=== PATIENT | female | born 1985 | race Caucasian/White ===

== ENCOUNTER 2016-06-04 17:34 | Emergency (ER) | payer OTHER ==
[~2016-06-04] VITALS: Ht 162.6 cm; Wt 68.9 kg
[~2016-06-04 17:34] MED LIST: AMOXICILLI400 MG/5 M PO; BLM PO; MOTRIN CHI100 MG/5 M PO; PRELONE15 MG/5 ML PO
--- NOTE | 2016-06-04 19:39 | ED GI/GU/ABDOMINAL COMPLAINT ---
History of Present Illness General Chief Complaint: Nausea, Vomiting, Diarrhea Stated Complaint: VOMITING; 19WKS PREG Source: patient, old records Exam Limitations: no limitations Vital Signs & Intake/Output Vital Signs & Intake/Output Vital Signs Date Time Temp Pulse Resp B/P Pulse O2 O2 Flow FiO2 Ox Delivery Rate 06/04 2146 98.0 95 16 107/60 98 Room Air 06/04 2034 98.0 89 16 108/58 98 Room Air 06/04 1954 Room Air 06/04 1740 96.8 105 16 109/73 97 Room Air Allergies Coded Allergies: NO KNOWN ALLERGIES (07/22/11) Reconcile Medications Metoclopramide HCl (Reglan) 10 MG TABLET 1 TAB PO 4 TIMES/DAY PRN nausea 30 minutes before meals and bedtime Ondansetron (Ondansetron Odt) 8 MG TAB.RAPDIS 1 TAB PO DAILY N/V (Reported) Vit No.129/Iron/FA ( One Daily Tablet) 27 MG IRON-800 MCG TABLET 1 TAB PO DAILY SUPPLEMENT (Reported) Triage Note: PT STATES SHE IS AND SHE HAS BEEN VOMITING. PT STATES HER OB TOLD HER TO COME IN FOR IV FLUIDS. Triage Nurses Notes Reviewed? yes LMP (ages 10-50): date (19 weeks ago) ? y Is pt currently ? No Onset: 4 days Duration: day(s):, continues in ED, intermittent Timing: recent history Quality/Severity: moderate, vomiting Activities at Onset: none Prior Abdominal Problems: similar symptoms Past Sexual History: Unobtainable at this time Modifying Factors: Worsens With: eating. Associated Symptoms: loss of appetite, nausea/vomiting HPI: 3 days prior to admission patient complains of nausea vomiting decreased appetite. She was seen yesterday prescribed Zofran and a bag of fluid. She is able to tolerate small sips of liquids feels dizzy. She denies fever chills diarrhea chest pain cough shortness of breath abdominal pain dysuria rash bleeding headache. Past History Travel History Traveled to [place] past 21 day No Medical History Any Pertinent Medical History? none Surgical History Surgical History: non-contributory Psychosocial History What is your primary language Belarusian Tobacco Use: Never used ETOH Use: denies use Illicit Drug Use: denies illicit drug use Family History Hx Contributory? No Review of Systems Review of Systems Constitutional: Reports: see HPI, malaise. EENTM: Reports: no symptoms. Respiratory: Reports: no symptoms. Cardiovascular: Reports: no symptoms. GI: Reports: see HPI, nausea, vomiting. Genitourinary: Reports: no symptoms. Musculoskeletal: Reports: no symptoms. Skin: Reports: no symptoms. Neurological/Psychological: Reports: no symptoms. Hematologic/Endocrine: Reports: no symptoms. Immunologic/Allergic: Reports: no symptoms. All Other Systems: Reviewed and Negative Physical Exam Physical Exam General Appearance: well developed/nourished, no apparent distress, awake, anxious, mild distress Head: atraumatic, normal appearance Eyes: Bilateral: normal appearance, PERRL, EOMI, normal inspection. Ears, Nose, Throat, Mouth: hearing grossly normal, dry mucous membranes Neck: normal inspection, supple, full range of motion, normal alignment Respiratory: normal breath sounds, chest non-tender, no respiratory distress, quiet respiration, lungs clear Cardiovascular: regular rate/rhythm, normal peripheral pulses, norml femoral pulses equa Peripheral Pulses: 4+ carotid (R), 4+ carotid (L) Gastrointestinal: normal bowel sounds, soft, non-tender, no organomegaly Back: normal inspection, normal range of motion Extremities: normal range of motion, no ligament instability Neurologic/Psych: no motor/sensory deficits, awake, alert, oriented x 3, normal gait, normal mood/affect, transport conductor II-XII nml as tested Skin: intact, normal color Core Measures ACS in differential dx? No Severe Sepsis Present: No Septic Shock Present: No Progress Differential Diagnosis: gastritis Plan of Care: Orders Procedure Date/time Status LIPASE 06/04 1931 Complete COMPREHENSIVE METABOLIC PANEL 06/04 1931 Complete CBC WITHOUT DIFFERENTIAL 06/04 1931 Complete Laboratory Tests 06/04/161944: Anion Gap 10, Estimated GFR > 60, BUN/Creatinine Ratio 6.0 L, Glucose 80, Calcium 9.0, Total Bilirubin 0.4, AST 33, ALT 45, Alkaline Phosphatase 62, Total Protein 6.9, Albumin 3.8, Globulin 3.1, Albumin/Globulin Ratio 1.2, Lipase 59, CBC w Diff NO MAN DIFF REQ, RBC 3.83 L, MCV 89.6, MCH 30.6, RDW 13.3, MPV 8.6, Gran % 81.1 H, Lymphocytes % 12.0 L, Monocytes % 6.4, Eosinophils % 0.4, Basophils % 0.1, Absolute Granulocytes 5.0, Absolute Lymphocytes 0.7 L, Absolute Monocytes 0.4, Absolute Eosinophils 0, Absolute Basophils 0, PUBS MCHC 34.1 Initial ED EKG: none Departure Departure Time of Disposition: 2137 Disposition: HOME OR SELF CARE Condition: Stable Clinical Impression Primary Impression: Nausea and vomiting in prior to 22 weeks gestation Secondary Impressions: Dehydration syndrome Referrals: PATIENT HAS NO PRIMARY CARE DR (PCP/Family) Additional Instructions: Clear liquids in small amounts for 12-24 hours until better Departure Forms: Customer Survey General Discharge Information Prescriptions: Current Visit Scripts Metoclopramide HCl (Reglan) 1 TAB PO 4 TIMES/DAY PRN nausea #30 TAB 30 minutes before meals and bedtime
[2016-06-04 20:20] LABS: ABSOLUTE BASOPHIL COUNT 0 /CUMM (0.0-0.2); ABSOLUTE EOSINOPHIL COUNT 0 /CUMM (0.0-0.7); ABSOLUTE LYMPH COUNT 0.7 /CUMM (1.2-3.4); ABSOLUTE MONOCYTE COUNT 0.4 /CUMM (0.10-0.60); BASOPHIL % 0.1 % (0.0-2.0); EOSINOPHIL % 0.4 % (0-5); GRANULOCYTE % 81.1 % (42.2-75.2); HEMATOCRIT 34.3 % (37-47); MEAN CORPUSCULAR HGB 30.6 PG (27.0-31.0); MEAN CORPUSCULAR HGB CONC 34.1 G/DL (33.0-37.0); MEAN CORPUSCULAR VOLUME 89.6 FL (81.0-99.0); MEAN PLATELET VOLUME 8.6 FL (7.4-10.4); PLATELET COUNT 198 /CUMM (130-400); RBC DISTRIBUTION WIDTH 13.3 % (11.5-14.5); RED BLOOD CELL CT 3.83 /CUMM (4.20-5.40); WHITE BLOOD CELL COUNT 6.1 /CUMM (4.8-10.8)
[2016-06-04] MEDS ORDERED: REGLAN10 M1 PO (21:39)
[2016-06-04] MEDS ORDERED: ONDANSETRON ODT8 M1 PO (21:40)
[2016-06-04] MEDS ORDERED: PRENATAL ONE D1 EACH PO (21:42)
[2016-06-04 21:47] VITALS: BP 107/60
== END 2016-06-04 21:48 ==
LOC: ERH 17:34
PROVIDERS: Emergency Medicine
DX: O21.9 Vomiting of pregnancy, unspecified (principal); E86.0 Dehydration
CPT/HCPCS: 96361; 96374; J2765

== ENCOUNTER 2016-10-20 17:44 | Inpatient (IN) | payer OTHER ==
[~2016-10-20] VITALS: Ht 162.6 cm; Wt 73.9 kg
[~2016-10-20 17:44] MED LIST changes: +ONDANSETRON ODT8 M1 PO; +PRENATAL ONE D1 EACH PO; +REGLAN10 M1 PO
[2016-10-20 18:44] LABS: ABSOLUTE BASOPHIL COUNT 0 /CUMM (0.0-0.2); ABSOLUTE EOSINOPHIL COUNT 0 /CUMM (0.0-0.7); ABSOLUTE GRANULOCYTE CT 10.4 /CUMM (1.4-6.5); ABSOLUTE MONOCYTE COUNT 0.7 /CUMM (0.10-0.60); BASOPHIL % 0.1 % (0.0-2.0); EOSINOPHIL % 0.3 % (0-5); GRANULOCYTE % 79.2 % (42.2-75.2); MEAN CORPUSCULAR HGB 29.7 PG (27.0-31.0); MEAN CORPUSCULAR HGB CONC 33.5 G/DL (33.0-37.0); MEAN CORPUSCULAR VOLUME 88.8 FL (81.0-99.0); MEAN PLATELET VOLUME 9.4 FL (7.4-10.4); PLATELET COUNT 240 /CUMM (130-400); RBC DISTRIBUTION WIDTH 13.8 % (11.5-14.5); WHITE BLOOD CELL COUNT 13.1 /CUMM (4.8-10.8)
[2016-10-20 20:05] VITALS: BP 128/61
[2016-10-21 09:14] LABS: ABSOLUTE BASOPHIL COUNT 0 /CUMM (0.0-0.2); ABSOLUTE EOSINOPHIL COUNT 0 /CUMM (0.0-0.7); ABSOLUTE GRANULOCYTE CT 8.4 /CUMM (1.4-6.5); ABSOLUTE LYMPH COUNT 1.5 /CUMM (1.2-3.4); ABSOLUTE MONOCYTE COUNT 0.7 /CUMM (0.10-0.60); BASOPHIL % 0 % (0.0-2.0); EOSINOPHIL % 0.3 % (0-5); GRANULOCYTE % 78.7 % (42.2-75.2); HEMATOCRIT 35.3 % (37-47); MEAN CORPUSCULAR HGB CONC 33.9 G/DL (33.0-37.0); MEAN CORPUSCULAR VOLUME 88.5 FL (81.0-99.0); PLATELET COUNT 216 /CUMM (130-400); RBC DISTRIBUTION WIDTH 13.7 % (11.5-14.5); RED BLOOD CELL CT 3.99 /CUMM (4.20-5.40); WHITE BLOOD CELL COUNT 10.7 /CUMM (4.8-10.8)
[2016-10-22] MEDS ORDERED: PERCOCET 5-3251 EACH PO (07:27)
[2016-10-22] MEDS ORDERED: IBUPROFEN800 M1 PO (07:27)
[2016-10-22] MEDS ORDERED: DOCUSATE SODIU100 M3 PO (07:27)
--- NOTE | 2016-10-22 10:18 | PN- Post Delivery/GYN ---
Subjective Subjective: NO C/O; DESIRES LTS AT 7 WEEKS Review of Systems: NEG Objective Last 24 Hrs of Vital Signs/I&O VSS AFEBRILE Physical Exam: FF EXT NT Assessment/Plan Assessment/Plan S/P PPD2 STABLE DISCHARGE HOME Problem List: 1.
--- NOTE | 2016-10-22 10:19 | Labor & Delivery Summary ---
Delivery Summary Vaginal Delivery: Vaginal: vertex Episiotomy/Lacerations: Episiotomy/Lacerations: none Placenta: Placenta: spontanteous, normal, 3 vessel Anesthesia: none Baby's Weight: 7/6 Apgars - 1 Min: 9 Apgars - 5 Min: 9
== END 2016-10-22 11:30 | DRG 560 ==
LOC: CBCO 17:44 → GNO 18:09
PROVIDERS: ADMIT Obstetrics & Gynecology
PROC: 10E0XZZ Delivery of Products of Conception, External Approach (ICD-10-PCS; principal; 2016-10-20)
DX: O62.3 Precipitate labor (principal); Z3A.38 38 weeks gestation of pregnancy; Z37.0 Single live birth
CPT/HCPCS: GNOS; 81001; J1885; J7120

== ENCOUNTER 2017-09-12 19:37 | Emergency (ER) | payer OTHER ==
[~2017-09-12] VITALS: Ht 162.6 cm; Wt 70.3 kg
[~2017-09-12 19:37] MED LIST changes: +BACLOFEN10 M1 PO; +DOCUSATE SODIU100 M3 PO; +IBUPROFEN800 M1 PO; +PERCOCET 5-3251 EACH PO; +PROAIR HFA8.5 GM INH
--- NOTE | 2017-09-12 19:49 | ED CARDIAC/CP/PALPITATIONS ---
History of Present Illness General Chief Complaint: Chest Pain Stated Complaint: SENT IN BY WALK IN FOR CHEST PAIN Source: patient Exam Limitations: no limitations Vital Signs & Intake/Output Vital Signs & Intake/Output Vital Signs Date Time Temp Pulse Resp B/P B/P Pulse O2 O2 Flow FiO2 Mean Ox Delivery Rate 09/12 2141 98 Room Air 09/12 2136 97.2 67 18 142/87 98 Room Air 09/13 2035 97.0 74 18 119/70 99 Room Air Allergies Coded Allergies: NO KNOWN ALLERGIES (NONE 10/21/16) Reconcile Medications Albuterol Sulfate (Proair Hfa) 90 MCG HFA.AER.AD 2 PUF INH Q4-6 PRN PRN shortness of breath Baclofen 10 MG TABLET 1 TAB PO TIDPRN PRN muscle spasm/strain Triage Nurses Notes Reviewed? yes Onset: Gradual Duration: week(s): Timing: recent history Location: central Radiation: no radiation Activities at Onset: none Prior Chest Pain/Card Workup: no prior chest pain Modifying Factors: Worsens With: movement. HPI: 32 yo woman h/o hyperlipidemia presents with central and left sided chest pain, "like a pressure," She was seen at urgent care and referred to ED. She notes no radiation, no dyspnea, diaphoresis, lightheadedness. She is otherwise well. Past History Medical History Any Pertinent Medical History? see below for history Neurological: NONE EENT: NONE Cardiovascular: HIGH CHOL Respiratory: NONE Gastrointestinal: NONE Hepatic: NONE Renal: NONE Musculoskeletal: NONE Psychiatric: NONE Endocrine: NONE Surgical History Surgical History: non-contributory Psychosocial History What is your primary language Kinyarwanda Family History Hx Contributory? No Review of Systems Review of Systems Constitutional: Reports: no symptoms. EENTM: Reports: no symptoms. Respiratory: Reports: no symptoms. Cardiovascular: Reports: no symptoms. GI: Reports: no symptoms. Genitourinary: Reports: no symptoms. Musculoskeletal: Reports: no symptoms. Skin: Reports: no symptoms. Neurological/Psychological: Reports: no symptoms. Hematologic/Endocrine: Reports: no symptoms. Immunologic/Allergic: Reports: no symptoms. All Other Systems: Reviewed and Negative Physical Exam Physical Exam General Appearance: well developed/nourished, mild distress Head: atraumatic, normal appearance Eyes: Bilateral: normal appearance. Ears, Nose, Throat: normal pharynx, normal ENT inspection Neck: normal inspection, supple, full range of motion Respiratory: normal breath sounds Cardiovascular: regular rate/rhythm Gastrointestinal: normal bowel sounds, soft, non-tender Back: normal inspection Extremities: normal inspection, normal capillary refill, normal range of motion, no edema Neurologic/Psych: no motor/sensory deficits, awake, alert, oriented x 3 Skin: intact, normal color, warm/dry Core Measures ACS in differential dx? No CVA/TIA Diagnosis No Sepsis Present: No Sepsis Focused Exam Completed? No Progress Differential Diagnosis: AMI, costochondritis, hyperkalemia, myocarditis Plan of Care: Orders Procedure Date/time Status Add-on Test (ER Only) 09/12 2130 Active Add-on Test (ER Only) 09/12 2124 Active PARTIAL THROMBOPLASTIN TIME 09/12 1956 Complete PROTHROMBIN TIME 09/12 1956 Complete TROPONIN LEVEL 09/13 1939 Complete LIPASE 09/13 1939 Complete HEPATIC FUNCTION PANEL 09/13 1939 Complete HUMAN BETA HCG SCREEN 09/13 1939 Complete D-DIMER 09/13 1939 Complete CBC WITHOUT DIFFERENTIAL 09/13 1939 Complete BASIC METABOLIC PANEL 09/13 1939 Complete AMYLASE 09/13 1939 Complete EKG 09/12 1938 Active Laboratory Tests 09/12/172124: APTT Cancelled 09/12/171956: Anion Gap 13, Estimated GFR > 60, BUN/Creatinine Ratio 21.7, Glucose 104 H, Calcium 9.5, Total Bilirubin 0.3, Direct Bilirubin 0.3, AST 33, ALT 45, Alkaline Phosphatase 88, Troponin I 0.45 *H, Total Protein 7.5, Albumin 4.4, Amylase 55, Lipase 53, Total Beta HCG NEGATIVE, PT 10.8, INR 0.99, APTT 34, D-Dimer High Sensitivty < 200, CBC w Diff NO MAN DIFF REQ, RBC 4.49, MCV 88.6, MCH 29.9, MCHC 33.7, RDW 13.4, MPV 8.2, Gran % 72.8, Lymphocytes % 19.2 L, Monocytes % 5.9, Eosinophils % 1.6, Basophils % 0.5, Absolute Granulocytes 6.7 H, Absolute Lymphocytes 1.8, Absolute Monocytes 0.5, Absolute Eosinophils 0.1, Absolute Basophils 0 Initial ED EKG: flipped t in II, F, no change from prior ekg Departure Departure Disposition: OTHER GENERAL HOSPITAL ([facility]) Condition: Stable Clinical Impression Primary Impression: Myocardial infarction Referrals: Patient Has No Primary Care Dr (PCP/Family) Departure Forms: Customer Survey General Discharge Information Comments 09/12/16, 20:11... pt with flipped t waves, +troponin... discussed with dr. zafar... given her young age, +troponin, pt merits transfer... discussed with dr foy, [place] [facility], who accepts patient. Critical Care Note Critical Care Note Critical Care Time: 30-74 min
[2017-09-12 20:16] LABS: ABSOLUTE BASOPHIL COUNT 0 /CUMM (0.0-0.2); ABSOLUTE EOSINOPHIL COUNT 0.1 /CUMM (0.0-0.7); ABSOLUTE GRANULOCYTE CT 6.7 /CUMM (1.4-6.5); ABSOLUTE LYMPH COUNT 1.8 /CUMM (1.2-3.4); ABSOLUTE MONOCYTE COUNT 0.5 /CUMM (0.10-0.60); BASOPHIL % 0.5 % (0.0-2.0); EOSINOPHIL % 1.6 % (0-5); GRANULOCYTE % 72.8 % (42.2-75.2); HEMATOCRIT 39.8 % (37-47); MEAN CORPUSCULAR HGB 29.9 PG (27.0-31.0); MEAN CORPUSCULAR HGB CONC 33.7 G/DL (33.0-37.0); MEAN CORPUSCULAR VOLUME 88.6 FL (81.0-99.0); MEAN PLATELET VOLUME 8.2 FL (7.4-10.4); PLATELET COUNT 309 /CUMM (130-400); RBC DISTRIBUTION WIDTH 13.4 % (11.5-14.5); RED BLOOD CELL CT 4.49 /CUMM (4.20-5.40); WHITE BLOOD CELL COUNT 9.2 /CUMM (4.8-10.8)
[2017-09-12 21:37] VITALS: BP 142/87
[2017-09-12 21:39] LABS: PT 10.8 SEC (9.4-12.5); PTT 34 SEC (25-37)
== END 2017-09-12 21:07 | disposition short-term general hospital (02) ==
LOC: ERH 19:37
PROVIDERS: Pediatrics
DX: I21.9 Acute myocardial infarction, unspecified (principal); R07.89 Other chest pain
CPT/HCPCS: 93005; 93010; 96374; 96375; 99291; J1644; J3490